=== PATIENT | male | born 1995 | race Caucasian/White ===

== ENCOUNTER 2024-10-05 07:08 | Emergency (ER) | payer MEDICAID ==
[~2024-10-05] VITALS: Ht 185.4 cm; Wt 71.0 kg
--- NOTE | 2024-10-05 07:30 | ED.PDOC ---
History of Present Illness HPI Comments 29 year old male presents to the ED with chief complaint of generalized weakness. Patient reports that he woke up this morning feeling very weak. Has good strength in all extremities as he is walking without any difficulty. Patient relays that he felt as if he was intoxicated, but he has not drank or used drugs. Patient denies any N/V/D, chest pain, SOB, headache, or abdominal pain. Chief Complaint: General Weakness Time Seen by MD: 07:28 Reviewed Notes: Nurses Notes, Medications, Allergies Home Meds Active Scripts Amoxicillin Trihydrate (Amoxicillin) 500 Mg Cap, 1 CAP PO TID for 5 Days, #15 CAP Prov:ARMIN JAMES MD 10/05/24 Information Source: Patient Mode of Arrival: Wheelchair Severity: Mild Timing: Hours Duration: Since onset Prehospital treatment: None Past Medical History PAST MEDICAL HISTORY: Denies Surgical History: Denies all surgeries Family History Family History: Reviewed,noncontributory to illness Social History Smoker: Non-Smoker Alcohol: Denies ETOH Use Drugs: Denies Drug Use Lives In: Home Constitutional: reports: weakness; denies: chills, diaphoresis, fatigue, fever, malaise, sweats, others EENTM: denies: blurred vision, double vision, ear bleeding, ear discharge, ear drainage, ear pain, ear ringing, eye pain, eye redness, hearing loss, mouth pain, mouth swelling, nasal discharge, nose bleeding, nose congestion, nose pain , photophobia, tearing, throat pain, throat swelling, voice changes, others Respiratory: denies: cough, hemoptysis, orthopnea, SOB at rest, shortness of breath, SOB with excertion, stridor, wheezing, others Cardiovascular: denies: chest pain, dizzy spells, diaphoresis, Dyspnea on exertion, edema, irregular heart beat, left arm pain, lightheadedness, palpitations, PND, syncope, others Gastrointestinal: denies: abdomen distended, abdominal pain, blood streaked bowels, constipated, diarrhea, dysphagia, difficulty swallowing, hematemesis, melena, nausea, poor appetite, poor fluid intake, rectal bleeding, rectal pain, vomiting, others Genitourinary: denies: burning, dysuria, flank pain, frequency, hematuria, incontinence, penile discharge, penile sore, pain, testicle pain, testicle swelling, urgency, others Neurological: reports: dizziness; denies: fainting, headache, left sided numbne ss, left sided weakness, numbness, paresthesia, pre-existing deficit, right sided numbness, right sided weakness, seizure, speech problems, tingling, tremors, weakness, others Musculoskeletal: denies: back pain, gout, joint pain, joint swelling, muscle pain, muscle stiffness, neck pain, others Integumetry: denies: bruises, change in color, change in hair/nails, dryness, laceration, lesions, lumps, rash, wounds, others Allergic/Immunocompromised: denies: Difficulty Healing, Frequent Infections, Hives, Itching, others Hematologic/Lymphatic: denies: anemia, blood clots, easy bleeding, easy bruising, swollen glands, others Endocrine: denies: excessive hunger, excessive sweating, excessive thirst, excessive urination, flushing, intolerance to cold, intolerance to heat, unexplained weight gain, unexplained weight loss, others Psychiatric: denies: anxiety, bipolar disorder, depression, hopeless, panic disorder, schizophrenia, sleepless, suicidal, others All Other Systems: Reviewed and Negative Physical Exam General Appearance: Moderate Distress, Normal HEENT: Normal ENT Inspection, PERRL/EOMI, Pharynx Normal, TMs Normal Neck: Full Range of Motion, Non-Tender, Normal, Normal Inspection Respiratory: Chest Non-Tender, Lungs Clear, No Accessory Muscle Use, No Respiratory Distress, Normal Breath Sounds Cardiovascular: No Edema, No JVD, No Murmur, No Gallop, Normal Peripheral Pu lses, Regular Rate/Rhythm Breast Exam: Deferred Gastrointestinal: No Organomegaly, Non Tender, No Pulsatile Mass, Normal Bowel Sounds, Soft Genitalia: Deferred Pelvic: Deferred Rectal: Deferred Extremities: No calf tenderness, Normal capillary refill, Normal inspection, Normal range of motion, Non-tender, No pedal edema Musculoskeletal : Apperance: Normal Neurologic: Alert, manager of sustainability II-XII nml as Tested, No Motor Deficits, Normal Affect, Normal Mood, No Sensory Deficits Cerebellar Function: NOT DONE Reflexes: NOT DONE Skin: Dry, Normal Color, Warm Peripheral Pulses: 3+ Radial (R), 3+ Radial (L) Lymphatic: No Adenopathy Was a procedure done? Was a procedure done?: No EKG EKG : Pulse Rate (adult): 87 [place]: Normal Cardiac Rhythm: NSR Block: None Hypertrophy: None ST: Normal Differential Dx Considerations may include: TIA Electrolyte imbalance X-Ray, Labs, Meds, VS Vital Signs Date Time Temp Pulse Resp B/P (MAP) Pulse Ox O2 Delivery O2 Flow Rate FiO2 10/05/24 08:04 93 17 96 Room Air 10/05/24 08:04 93 17 135/78 (97) 96 10/05/24 07:30 87 10/05/24 07:22 87 10/05/24 07:20 98.3 84 19 120/76 (91) 98 Lab Test 10/05/24 08:00 10/05/24 07:51 10/05/24 07:17 Range/Units Urine Color Light-yellow Yellow Urine Clarity Clear Clear Urine pH 5.5 5.0-9.0 Urine Specific [place] 1.006 1.001-1.035 Urine Protein Negative Negative Urine Ketones Negative Negative Urine Blood Negative Negative /uL Urine Nitrite Negative Negative Urine Bilirubin Negative Negative Urine Urobilinogen Normal Negative mg/dL Urine Leukocyte Esterase Negative Negative /uL Urine RBC <1 0 - 3 /hpf Urine WBC <1 0 - 3 /hpf Urine Squamous Epithelial Cells None seen <5 /hpf Urine Bacteria None seen None Seen /hpf Urine Glucose Normal Normal mg/dL White Blood Count 13.1 H 4.4-10.8 10^3/uL Red Blood Count 5.92 H 4.5-5.90 10^6/uL Hemoglobin 17.0 13.5-17.5 g/dL Hematocrit 52.8 41.0-53.0 % Mean Corpuscular Volume 89.2 80.0-100.0 fL Mean Corpuscular Hemoglobin 28.8 28.0-32.0 pg Mean Corpuscular Hemoglobin Concent 32.3 32.0-36.0 g/dL Red Cell Distribution Width 14.4 H 11.8-14.3 % Platelet Count 361 140-450 10^3/uL Mean Platelet Volume 8.0 6.9-10.8 fL Neutrophils (%) (Auto) 79.4 37.0-80.0 % Lymphocytes (%) (Auto) 10.3 10.0-50.0 % Monocytes (%) (Auto) 9.0 0.0-12.0 % Eosinophils (%) (Auto) 0.9 0.0-7.0 % Basophils (%) (Auto) 0.4 0.0-2.0 % Neutrophils # (Auto) 10.4 H 1.6-8.6 10 ^3/uL Lymphocytes # (Auto) 1.3 0.4-5.4 10 ^3/uL Monocytes # (Auto) 1.2 0-1.3 10 ^3/uL Eosinophils # (Auto) 0.1 0-0.8 10 ^3/uL Basophils # (Auto) 0.1 0-0.2 10 ^3/uL Nucleated Red Blood Cells 0.1 % Sodium Level 142 136-145 mmol/L Potassium Level 4.7 3.5-5.1 mmol/L Chloride Level 106 98-107 mmol/L Carbon Dioxide Level 28 20-31 mmol/L Anion Gap 8 5-15 Blood Urea Nitrogen 6 L 9-23 mg/dL Creatinine 1.26 0.700-1.30 mg/dL Glomerular Filtration Rate Calc 80 >90 mL/min BUN/Creatinine Ratio 4.8 L 10.0-20.0 Serum Glucose 98 74-106 mg/dL Calcium Level 9.7 8.7-10.4 mg/dL POC Glucose 71 70-106 mg/dl Patient alert. Possibly chronic. Vitals stable. He will need special assistance. Maybe require MRI. Group meeting with family. EKG reviewed does not show any acute changes. Explained to the patient. Continue cardiac monitoring. [place] we will set up an appointment. Patient as stated in the past having good strength in all extremities pain Mentating well. No head injury. CT of the head was not done because physical examination was pristine. [place] wanting outpatient. He is not danger to himself. WBC elevated pain Lungs clear. Possibly bronchitis. Was given prescription of amoxicillin antibiotic. Explained to the family. [id number]. Time of 1ST Reevaluation: 08:28 Reevaluation 1ST: Improved Time of 2ND Reevaluation: 09:34 Reevaluation 2ND: Improved Patient Education/Counseling: Diagnosis, Treatment Family Education/Counseling: No Family Present Departure 1 Departure Time of Disposition: 07:38 Impression: Primary Impression: Leukocytosis Qualified Codes: D72.829 - Elevated white blood cell count, unspecified Additional Impression: Bronchitis Disposition: 01 HOME / SELF CARE / HOMELESS Condition: Good e-Prescriptions Amoxicillin Trihydrate (Amoxicillin) 500 Mg Cap 1 CAP PO TID for 5 Days, #15 CAP Prov: ARMIN JAMES MD 10/05/24 Discharged With: Self Critical Care Note Critical Care Time?: No Stability Stability form required: No Heart Score Heart Score: Heart Score Response (Comments) Value History Slightly Suspicious 0 EKG Normal 0 Age <45 0 Risk Factors No known risk factors 0 Troponin N/A 0 Total 0 I personally scribed for ARMIN JAMES MD ([email or web address]) on 10/05/24 at 07:30. Electronically submitted by Alberto Anderson ([email or web address]). I personally scribed for ARMIN JAMES MD ([email or web address]) on 10/05/24 at 07:30. Electronically submitted by Alberto Anderson ([email or web address]). ARMIN JAMES MD Oct 05, 2024 07:30
[2024-10-05 08:04] VITALS: BP 135/78; PULSE 93; RESP 17; O2SAT 96
[2024-10-05 08:35] LABS: Basophils # (auto) 0.1 10 ^3/uL (0-0.2); Basophils % (auto) 0.4 % (0.0-2.0); Eosinophils # (auto) 0.1 10 ^3/uL (0-0.8); Eosinophils % (auto) 0.9 % (0.0-7.0); Hematocrit 52.8 % (41.0-53.0); Lymphocytes # (auto) 1.3 10 ^3/uL (0.4-5.4); Lymphocytes % (auto) 10.3 % (10.0-50.0); Mean Corpuscular Hemoglobin 28.8 pg (28.0-32.0); Mean Corpuscular Hgb Conc. 32.3 g/dL (32.0-36.0); Mean Corpuscular Volume 89.2 fL (80.0-100.0); Monocytes # (auto) 1.2 10 ^3/uL (0-1.3); Neutrophils # (auto) 10.4 10 ^3/uL (1.6-8.6); Neutrophils % (auto) 79.4 % (37.0-80.0); Nucleated Red Blood Cells % 0.1 %; Platelet Count (auto) 361 10^3/uL (140-450); Red Blood Cells 5.92 10^6/uL (4.5-5.90); Red Cell Distribution Width 14.4 % (11.8-14.3); White Blood Cell 13.1 10^3/uL (4.4-10.8)
[2024-10-05 08:36] LABS: Urine Bacteria None Seen /hpf (None Seen)
[2024-10-05 08:44] LABS: Chloride 106 mmol/L (98-107); Potassium 4.7 mmol/L (3.5-5.1); Sodium 142 mmol/L (136-145)
[2024-10-05 08:45] LABS: Anion Gap 8 (5-15); Carbon Dioxide 28 mmol/L (20-31)
[2024-10-05 08:46] LABS: Calcium 9.7 mg/dL (8.7-10.4)
[2024-10-05 08:49] LABS: Urine Blood Negative /uL (Negative); Urine Clarity Clear (Clear); Urine Color Light-Yellow (Yellow); Urine Protein, UAD Negative (Negative); Urine Specific Gravity 1.006 (1.001-1.035); Urine Urobilinogen Normal (Negative); Urine WBC <1 /hpf (0 - 3); Urine pH 5.5 (5.0-9.0)
[2024-10-05 08:50] LABS: Glucose 98 mg/dL (74-106)
[2024-10-05 08:51] LABS: BUN/Creatinine Ratio 4.8 (10.0-20.0); Blood Urea Nitrogen 6 mg/dL (9-23)
[2024-10-05] MEDS ORDERED: AMOX500C2 PO (09:33)
--- NOTE | 2024-10-07 12:20 | ECG ---
[facility] Test Date: 2024-10-05 Test Time: 07:22:11 Pat Name: GLORIA MORELAND Department: ER Room: Gender: M Bus Steward: MARGO : 1995 Requested By: ARMIN JAMES Order Number: [id number] Reading MD: Israel Davis Measurements Intervals [place] Rate: 87 P: 49 NV: 137 QRS: 122 QRSD: 85 T: 11 QT: 360 QTc: 433 Interpretive Statements Sinus rhythm Right axis deviation Minimal ST depression, inferior leads Electronically Signed On 10-13-2024 13:02:20 PST by Israel Davis Please click the below link to view image of tracing.
== END 2024-10-05 09:40 | disposition home or self-care (01) ==
LOC: ER 07:08
DX: D72.829 Elevated white blood cell count, unspecified (principal); J40 Bronchitis, not specified as acute or chronic; Z79.899 Other long term (current) drug therapy
CPT/HCPCS: 36415; 80048; 81001; 82962; 85025; 93005